=== PATIENT | male | born 1980 | race Caucasian/White ===

== ENCOUNTER 2020-02-04 13:26 | Emergency (ER) | payer SELFPAY ==
[~2020-02-04] VITALS: Ht 170.2 cm; Wt 65.9 kg
[2020-02-04] MEDS ORDERED: ALPRAZolam 0.5 MG TABLET PO ONE (13:30)
--- NOTE | 2020-02-04 13:36 | PHYS DOC ---
Past Medical History Past Medical History: No Pertinent History, Other Past Surgical History: Other Additional Past Surgical Histo: right shoulder Smoking Status: Current Every Day Smoker Alcohol Use: Rarely Drug Use: None General Adult HPI: HPI: Patient is a 39-year-old male who presents after he took an [id number] supplement called kratom. He states he took more than he ordinarily does and now feels very jittery. He is concerned that he is going to have a heart attack or faint. He denies any other ingestion. [] Review of Systems: Review of Systems: Constitutional: Denies fever or chills. [] Eyes: Denies change in visual acuity. [] HENT: Denies nasal congestion or sore throat. [] Respiratory: Denies cough or shortness of breath. [] Cardiovascular: Reports palpitations. [] GI: Denies abdominal pain, nausea, vomiting, bloody stools or diarrhea. [] : Denies dysuria. [] Musculoskeletal: Denies back pain or joint pain. [] Integument: Denies rash. [] Neurologic: Denies headache, focal weakness or sensory changes. [] Endocrine: Denies polyuria or polydipsia. [] Lymphatic: Denies swollen glands. [] Psychiatric: Anxious. [] Heart Score: Risk Factors: Risk Factors: DM, Current or recent (<one month) smoker, HTN, HLP, family history of CAD, obesity. Risk Scores: Score 0 - 3: 2.5% MACE over next 6 weeks - Discharge Home Score 4 - 6: 20.3% MACE over next 6 weeks - Admit for Clinical Observation Score 7 - 10: 72.7% MACE over next 6 weeks - Early Invasive Strategies Current Medications: Current Medications Medications (Trade) Dose Ordered Sig/Nan Start Time Stop Time Status Last Admin Dose Admin Alprazolam (Xanax) 0.5 mg 1X ONCE 02/04/20 13:30 02/04/20 13:31 Allergies: Allergies: Allergies Coded Allergies Type Severity Reaction Last Updated Verified codeine Allergy Unknown Itching 02/23/14 No ketorolac Allergy Unknown 02/23/14 No Physical Exam: PE: Constitutional: Well developed, well nourished, no acute distress, non-toxic appearance. [] HENT: Normocephalic, atraumatic, bilateral external ears normal, oropharynx moist, no oral exudates, nose normal. [] Eyes: PERRLA, EOMI, conjunctiva normal, no discharge. [] [] Cardiovascular: Tachycardic r [] Lungs & Thorax: Bilateral breath sounds clear to auscultation [] Abdomen: Bowel sounds normal, soft, no tenderness, no masses, no pulsatile masses. [] Extremities: No tenderness, no cyanosis, no clubbing, ROM intact, no edema. [] Neurologic: Alert and oriented X 3, normal motor function, normal sensory function, no focal deficits noted. [] Psychologic: Extremely anxious. [] EKG: EKG: [] Radiology/Procedures: Radiology/Procedures: [] Course & Med Decision Making: Course & Med Decision Making Pertinent Labs and Imaging studies reviewed. (See chart for details) [ED course: Evaluation reveals an anxious 39-year-old male who is likely feeling the effects of the supplement kratom. He states he did not eat this morning so we gave him a sandwich tray here I also gave him 0.5 alprazolam to help with his anxiety. As I discussed with the patient I feel like he is safe for discharge home.] Dragon Disclaimer: Dragon Disclaimer: This electronic medical record was generated, in whole or in part, using a voice recognition dictation system. Departure Departure Impression: Primary Impression: Accidental overdose Qualified Codes: T50.901A - Poisoning by unspecified drugs, medicaments and biological substances, accidental (unintentional), initial encounter Additional Impressions: Medication reaction Qualified Codes: T50.905A - Adverse effect of unspecified drugs, medicaments and biological substances, initial encounter Anxiety about health Disposition: 01 HOME, SELF-CARE Condition: STABLE Referrals: NO PCP (PCP) Patient Instructions: Overdose, Accidental, Palpitations Additional Instructions: Make sure you are eating plenty of food today. I would not take the supplement kratom ever again. Return to the emergency department with any new or concerning symptoms RAMIREZ HARO DO February 04, 2020 13:36
[2020-02-04 13:40] VITALS: BP 140/74
== END 2020-02-04 13:55 | disposition home or self-care (01) ==
LOC: ER 13:26
DX: T50.991A Poisoning by other drugs, medicaments and biological substances, accidental (unintentional), initial encounter (principal); F41.9 Anxiety disorder, unspecified; F17.200 Nicotine dependence, unspecified, uncomplicated; Z88.5 Allergy status to narcotic agent; Z88.6 Allergy status to analgesic agent; Y92.89 Other specified places as the place of occurrence of the external cause
CPT/HCPCS: 99283